=== PATIENT | female | born 1940 | race Two or more races ===

== ENCOUNTER 2017-06-22 17:17 | Inpatient (IN) | payer OTHER ==
[~2017-06-22] VITALS: Ht 162.6 cm; Wt 75.0 kg
[~2017-06-22 17:17] MED LIST: ALLO300T2 PO; AMIT25TA9 PO; ATEN-60 PO; GABA-339 PO; ISOS10TA2 PO; LEVO100T8 PO; LOSA25TA9 PO; SITA50TA PO; TRAM50TA2 PO
[2017-06-22 18:15] LABS: Basophils # (auto) 0.1 uL; Basophils % (auto) 0.9 % (0.0-2.0); Eosinophils # (auto) 0.2 uL; Eosinophils % (auto) 2.4 % (0.0-7.0); Hematocrit 42.4 % (36.0-46.0); Hemoglobin 13.6 g/dL (12.2-16.2); Lymphocytes # (auto) 1.3 uL; Lymphocytes % (auto) 16.6 % (10.0-50.0); Mean Corpuscular Volume 84.5 fL (80.0-100.0); Mean Platelet Volume 8.5 fL (6.9-10.8); Monocytes # (auto) 0.5 uL; Monocytes % (auto) 6.8 % (0.0-12.0); Neutrophils % (auto) 73.3 % (37.0-80.0); Nucleated Red Blood Cells % 0.1 %; Platelet Count (auto) 263 10^3/uL (140-450); Red Cell Distribution Width 17.6 % (11.8-14.3); White Blood Cell 8.1 10^3/uL (4.4-10.8)
[2017-06-22 18:26] LABS: INR 0.96 (0.9-1.15); Partial Thromboplastin Time 25.7 sec (22.64-33.71); Prothrombin Time 10.5 sec (9.37-12.3)
[2017-06-22 18:36] LABS: Albumin 3.1 g/dL (3.4-5.0); Alkaline Phosphatase 70 U/L (45-117); Anion Gap 9 (5-15); Aspartate Aminotransferase 13 U/L (15-37); Bilirubin, Total 0.3 mg/dL (0.2-1.0); Blood Urea Nitrogen 16 mg/dL (7-18); Carbon Dioxide 25 mmol/L (21-32); Chloride 104 mmol/L (98-107); GFR African American 69 mL/min; GFR Non-African American 57 mL/min; Glucose 237 mg/dL (74-106); Sodium 138 mmol/L (136-145); Total Protein 6.9 g/dL (6.4-8.2)
[2017-06-22] MEDS ORDERED: SODIUM CHLORIDE 0.9% 500 ML IV ONE (19:45)
[2017-06-22] MEDS ORDERED: ZALE10CA44 PO (21:33)
[2017-06-22] MEDS ORDERED: SITA50TA PO (21:34)
[2017-06-22] MEDS ORDERED: ACETAMINOPHEN 500 MG TAB PO PRN (22:30)
[2017-06-22] MEDS ORDERED: DEXTROSE (50%) 50ML SYRG IV PRN (22:30)
[2017-06-22 23:05] VITALS: BP 134/76
[2017-06-23 05:44] VITALS: BP 150/77
[2017-06-23 06:17] LABS: Basophils # (auto) 0.1 uL; Basophils % (auto) 0.8 % (0.0-2.0); Eosinophils # (auto) 0.2 uL; Eosinophils % (auto) 2.2 % (0.0-7.0); Hematocrit 41.4 % (36.0-46.0); Hemoglobin 13.4 g/dL (12.2-16.2); Lymphocytes # (auto) 2.6 uL; Lymphocytes % (auto) 30.1 % (10.0-50.0); Mean Corpuscular Hemoglobin 27.3 pg (28.0-32.0); Mean Corpuscular Hgb Conc. 32.3 g/dL (32.0-36.0); Mean Corpuscular Volume 84.4 fL (80.0-100.0); Mean Platelet Volume 8.7 fL (6.9-10.8); Monocytes # (auto) 0.7 uL; Monocytes % (auto) 8.4 % (0.0-12.0); Neutrophils # (auto) 5.1 uL; Neutrophils % (auto) 58.5 % (37.0-80.0); Nucleated Red Blood Cells % 0.1 %; Platelet Count (auto) 270 10^3/uL (140-450); Red Cell Distribution Width 17.5 % (11.8-14.3); White Blood Cell 8.7 10^3/uL (4.4-10.8)
[2017-06-23 06:41] LABS: Potassium 3.8 mmol/L (3.5-5.1)
[2017-06-23 06:46] LABS: Calcium 8.3 mg/dL (8.5-10.1)
[2017-06-23] MEDS: LEVOTHYROXINE SODIUM 100 MCG TAB PO SCH (07:08)
[2017-06-23] MEDS: ACCU-CHEK COMFORT CURVE STRIP VI SCH ×4 (07:09→22:55)
[2017-06-23] MEDS: InsuLIN REG 1unit/0.01ml Soln (100units/ml) SC SCH ×3 (07:15→17:00)
[2017-06-23 08:00] VITALS: BP 150/79
[2017-06-23] MEDS: GABAPENTIN 300 MG CAP PO SCH ×2 (11:07→22:54)
[2017-06-23] MEDS: LOSARTAN POTASSIUM 25 MG TAB PO SCH (11:08)
[2017-06-23] MEDS: ATENOLOL 25 MG TAB PO SCH (11:08)
[2017-06-23] MEDS ORDERED: ONDANSETRON HCL 4 MG/2 ML VIAL IV PRN (12:15)
[2017-06-23 13:00] VITALS: BP_SYST 124; BP_SYST 174; BP_DIAS 57; BP_DIAS 80
[2017-06-23 17:00] VITALS: BP 176/62
[2017-06-23] MEDS ORDERED: ASPirin-EC 81 mg tab PO ONE (17:00)
[2017-06-23] MEDS ORDERED: ASPirin-EC 325mg tab PO ONE (17:00)
[2017-06-23] MEDS: HYDROcodone-ACET 5/325MG TAB PO PRN (21:47)
[2017-06-23] MEDS ORDERED: InsuLIN REG 1unit/0.01ml Soln (100units/ml) SC SCH (22:00)
[2017-06-23] MEDS ORDERED: ATORVASTATIN 20 MG TAB PO SCH (22:00)
[2017-06-23 22:24] VITALS: BP 165/68
[2017-06-23] MEDS: PANTOPRAZOLE 40 MG TAB PO SCH (22:54)
[2017-06-24 06:15] VITALS: BP 141/75
[2017-06-24] MEDS: LEVOTHYROXINE SODIUM 100 MCG TAB PO SCH (06:28)
[2017-06-24] MEDS: InsuLIN REG 1unit/0.01ml Soln (100units/ml) SC SCH ×2 (06:29→11:30)
[2017-06-24] MEDS: ACCU-CHEK COMFORT CURVE STRIP VI SCH ×2 (06:29→11:30)
[2017-06-24 08:33] VITALS: BP 151/80
[2017-06-24] MEDS ORDERED: cefTRIAXone 1GM/10ml IVPUSH 10 ML IV SCH (09:00)
[2017-06-24] MEDS: HYDROcodone-ACET 5/325MG TAB PO PRN (09:46)
[2017-06-24] MEDS: ATENOLOL 25 MG TAB PO SCH (10:00)
[2017-06-24] MEDS ORDERED: ASPirin-EC 81 mg tab PO SCH (10:00)
[2017-06-24] MEDS: PANTOPRAZOLE 40 MG TAB PO SCH (11:06)
[2017-06-24] MEDS: GABAPENTIN 300 MG CAP PO SCH (11:07)
[2017-06-24] MEDS: LOSARTAN POTASSIUM 25 MG TAB PO SCH (11:07)
[2017-06-24 11:29] LABS: Urine RBC None Seen /hpf (0 - 4)
[2017-06-24 11:53] LABS: Urine Bilirubin Negative (Negative); Urine Blood Negative /uL (Negative); Urine Color Yellow (Yellow); Urine Glucose 2+ mg/dL (Normal); Urine Ketone Negative (Negative); Urine Mucus FEW (None Seen); Urine Nitrite Negative (Negative); Urine Squamous Epithelial Cell FEW /hpf (<5); Urine Urobilinogen Normal (Negative)
[2017-06-24 13:00] VITALS: BP 188/77
[2017-06-24 13:58] VITALS: BP_SYST 178; BP_SYST 188; BP_DIAS 77; BP_DIAS 81
== END 2017-06-24 15:00 | disposition home or self-care (01) | DRG 312 ==
LOC: EDBD 17:17 → ER 17:24 → OVERFLOW 17:25 → WEST WING 23:08
PROVIDERS: ADMIT Nurse Practitioner Family; ATTEND Family Medicine
DX: R55 Syncope and collapse (principal); J84.10 Pulmonary fibrosis, unspecified; E11.9 Type 2 diabetes mellitus without complications; N39.0 Urinary tract infection, site not specified; J44.9 Chronic obstructive pulmonary disease, unspecified; E03.9 Hypothyroidism, unspecified; H53.9 Unspecified visual disturbance; M54.2 Cervicalgia; G47.30 Sleep apnea, unspecified; I10 Essential (primary) hypertension; I25.10 Atherosclerotic heart disease of native coronary artery without angina pectoris; I25.2 Old myocardial infarction; M06.9 Rheumatoid arthritis, unspecified; M10.9 Gout, unspecified; M19.90 Unspecified osteoarthritis, unspecified site; Z79.4 Long term (current) use of insulin; Z79.899 Other long term (current) drug therapy; Z80.49 Family history of malignant neoplasm of other genital organs; Z80.51 Family history of malignant neoplasm of kidney; Z82.3 Family history of stroke; Z82.49 Family history of ischemic heart disease and other diseases of the circulatory system; Z83.3 Family history of diabetes mellitus; Z90.710 Acquired absence of both cervix and uterus; Z98.61 Coronary angioplasty status; Z88.5 Allergy status to narcotic agent; Z91.041 Radiographic dye allergy status; Z90.49 Acquired absence of other specified parts of digestive tract; Z95.5 Presence of coronary angioplasty implant and graft
CPT/HCPCS: 36415; 70450; 70551; 71010; 72141; 80048; 80053; 81001; 82607; 82962; 83036; 83735; 84443; 84484; 85025; 85610; 85730; 93005; 93886; 94761; 95819; 96360; 96361; J1815; J2405